=== PATIENT | female | born 1935 | race Caucasian/White ===

== ENCOUNTER → 2017-05-22 | Outpatient (CLI) | payer OTHER ==
[2017-05-22 10:00] LABS: Basophils # (auto) 0 uL; Basophils % (auto) 0.7 % (0.0-2.0); Eosinophils # (auto) 0.1 uL; Eosinophils % (auto) 2.1 % (0.0-7.0); Hematocrit 39.4 % (36.0-46.0); Hemoglobin 13.1 g/dL (12.2-16.2); Lymphocytes # (auto) 1.5 uL; Lymphocytes % (auto) 27.6 % (10.0-50.0); Mean Corpuscular Hemoglobin 32.4 pg (28.0-32.0); Mean Corpuscular Hgb Conc. 33.2 g/dL (32.0-36.0); Mean Corpuscular Volume 97.4 fL (80.0-100.0); Mean Platelet Volume 8.9 fL (6.9-10.8); Monocytes # (auto) 0.7 uL; Monocytes % (auto) 12.5 % (0.0-12.0); Neutrophils # (auto) 3.1 uL; Neutrophils % (auto) 57.1 % (37.0-80.0); Platelet Count (auto) 205 10^3/uL (140-450); Red Cell Distribution Width 13.6 % (11.8-14.3); White Blood Cell 5.4 10^3/uL (4.4-10.8)
[2017-05-22 10:36] LABS: Urine Bilirubin Negative (Negative); Urine Blood Negative /uL (Negative); Urine Color Yellow (Yellow); Urine Glucose Normal (Normal); Urine Ketone Negative (Negative); Urine Nitrite Negative (Negative); Urine RBC 1 /hpf (0 - 4); Urine Squamous Epithelial Cell FEW /hpf (<5); Urine Urobilinogen Normal (Negative); Urine pH 6.5 (5.0-8.0)
[2017-05-22 10:43] LABS: Albumin 3.8 g/dL (3.4-5.0); BUN/Creatinine Ratio 19.6; Bilirubin, Total 1.3 mg/dL (0.2-1.0); Calcium 10.6 mg/dL (8.5-10.1); Potassium 4.3 mmol/L (3.5-5.1); Total Protein 7.6 g/dL (6.4-8.2)
== END | disposition home or self-care (01) ==
LOC: LAB 09:15
PROVIDERS: ATTEND Internal Medicine
DX: I10 Essential (primary) hypertension (principal); E21.3 Hyperparathyroidism, unspecified
CPT/HCPCS: 36415; 80053; 80061; 81001; 82043; 82306; 83970; 84439; 84443; 85025; 85652

== ENCOUNTER → 2018-05-06 | Outpatient (CLI) | payer OTHER ==
[2018-05-06 09:03] LABS: Basophils # (auto) 0.1 uL; Eosinophils # (auto) 0.1 uL; Eosinophils % (auto) 1.7 % (0.0-7.0); Hematocrit 41.6 % (36.0-46.0); Hemoglobin 13.7 g/dL (12.2-16.2); Lymphocytes # (auto) 1.3 uL; Lymphocytes % (auto) 21.4 % (10.0-50.0); Mean Corpuscular Hemoglobin 32.3 pg (28.0-32.0); Mean Corpuscular Volume 97.8 fL (80.0-100.0); Monocytes # (auto) 0.8 uL; Monocytes % (auto) 13.1 % (0.0-12.0); Neutrophils # (auto) 3.7 uL; Neutrophils % (auto) 61.8 % (37.0-80.0); Platelet Count (auto) 194 10^3/uL (140-450); Red Blood Cells 4.25 10^6/uL (4.0-5.20); Red Cell Distribution Width 13.3 % (11.8-14.3)
[2018-05-06 13:27] LABS: Potassium 3.9 mmol/L (3.5-5.1)
[2018-05-06 13:36] LABS: Albumin 3.9 g/dL (3.4-5.0); BUN/Creatinine Ratio 28.9; Bilirubin, Total 0.9 mg/dL (0.2-1.0); Calcium 10.4 mg/dL (8.5-10.1); Total Protein 7.6 g/dL (6.4-8.2)
== END | disposition home or self-care (01) ==
LOC: LAB 08:17
PROVIDERS: ATTEND Internal Medicine
DX: I10 Essential (primary) hypertension (principal); E21.0 Primary hyperparathyroidism
CPT/HCPCS: 36415; 80053; 80061; 83970; 84439; 84443; 85025; 85652

== ENCOUNTER → 2019-05-04 | Outpatient (CLI) | payer OTHER ==
[2019-05-04 08:46] LABS: Basophils # (auto) 0 uL; Basophils % (auto) 0.9 % (0.0-2.0); Eosinophils # (auto) 0.1 uL; Eosinophils % (auto) 1.8 % (0.0-7.0); Hematocrit 41.6 % (36.0-46.0); Hemoglobin 13.8 g/dL (12.2-16.2); Lymphocytes # (auto) 1.2 uL; Lymphocytes % (auto) 23.9 % (10.0-50.0); Mean Corpuscular Hemoglobin 32.6 pg (28.0-32.0); Mean Corpuscular Hgb Conc. 33.1 g/dL (32.0-36.0); Mean Corpuscular Volume 98.3 fL (80.0-100.0); Monocytes # (auto) 0.5 uL; Monocytes % (auto) 9.9 % (0.0-12.0); Neutrophils # (auto) 3.3 uL; Neutrophils % (auto) 63.5 % (37.0-80.0); Nucleated Red Blood Cells % 0.1 %; Platelet Count (auto) 190 10^3/uL (140-450); Red Blood Cells 4.23 10^6/uL (4.0-5.20); Red Cell Distribution Width 14.2 % (11.8-14.3); White Blood Cell 5.2 10^3/uL (4.4-10.8)
[2019-05-04 08:47] LABS: Urine Bacteria FEW /hpf (None Seen); Urine Blood Negative /uL (Negative); Urine Specific Gravity 1.004 (1.001-1.035); Urine WBC 120 /hpf (0 - 5); Urine WBC Clumps PRESENT /hpf (None Seen)
[2019-05-04 09:11] LABS: Albumin 4.1 g/dL (3.4-5.0); Calcium 10.8 mg/dL (8.5-10.1); Potassium 3.8 mmol/L (3.5-5.1)
[2019-05-04 09:15] LABS: BUN/Creatinine Ratio 20.4; Bilirubin, Total 1.4 mg/dL (0.2-1.0); Total Protein 7.6 g/dL (6.4-8.2)
== END | disposition home or self-care (01) ==
LOC: LAB 08:10
PROVIDERS: ATTEND Internal Medicine
DX: E03.9 Hypothyroidism, unspecified (principal); I10 Essential (primary) hypertension
CPT/HCPCS: 36415; 80053; 80061; 81001; 82043; 83970; 84439; 84443; 85025; 85652

== ENCOUNTER → 2020-05-10 | Outpatient (CLI) | payer OTHER ==
[2020-05-10 10:05] LABS: Urine Bacteria FEW /hpf (None Seen); Urine Blood TRACE /uL (Negative); Urine Hyaline Cast FEW /lpf (0 - 2); Urine Mucus FEW (None Seen); Urine Specific Gravity 1.014 (1.001-1.035); Urine WBC 219 /hpf (0 - 5); Urine WBC Clumps PRESENT /hpf (None Seen)
[2020-05-10 10:18] LABS: Basophils # (auto) 0.1 10 ^3/uL (0-0.2); Basophils % (auto) 1.5 % (0.0-2.0); Eosinophils # (auto) 0.1 10 ^3/uL (0-0.8); Eosinophils % (auto) 1.6 % (0.0-7.0); Hematocrit 38.3 % (36.0-46.0); Hemoglobin 12.9 g/dL (12.2-16.2); Lymphocytes # (auto) 1.2 10 ^3/uL (0.4-5.4); Lymphocytes % (auto) 20.6 % (10.0-50.0); Mean Corpuscular Hemoglobin 32.7 pg (28.0-32.0); Mean Corpuscular Hgb Conc. 33.7 g/dL (32.0-36.0); Monocytes # (auto) 0.5 10 ^3/uL (0-1.3); Neutrophils # (auto) 4.1 10 ^3/uL (1.6-8.6); Neutrophils % (auto) 68.3 % (37.0-80.0); Platelet Count (auto) 198 10^3/uL (140-450); Red Blood Cells 3.95 10^6/uL (4.0-5.20); Red Cell Distribution Width 13.6 % (11.8-14.3)
[2020-05-10 10:39] LABS: Albumin 3.6 g/dL (3.4-5.0); Calcium 10.3 mg/dL (8.5-10.1); Potassium 3.8 mmol/L (3.5-5.1)
[2020-05-10 10:45] LABS: BUN/Creatinine Ratio 21.2; Bilirubin, Total 1.4 mg/dL (0.2-1.0)
== END | disposition home or self-care (01) ==
LOC: LAB 09:10
PROVIDERS: ATTEND Internal Medicine
DX: I10 Essential (primary) hypertension (principal); E21.0 Primary hyperparathyroidism; R91.8 Other nonspecific abnormal finding of lung field
CPT/HCPCS: 36415; 80053; 80061; 81001; 83970; 84439; 84443; 85025; 85652

== ENCOUNTER 2020-08-13 18:07 | Inpatient (IN) | payer OTHER ==
[~2020-08-13] VITALS: Ht 152.4 cm; Wt 61.9 kg
[2020-08-13 18:36] VITALS: BP 91/50
[2020-08-13 19:30] VITALS: BP 91/50
[2020-08-13] MEDS ORDERED: ACETAMINOPHEN 500 MG TAB PO PRN (20:00)
[2020-08-13] MEDS ORDERED: MORPHINE SULF INJ 2 MG/ML SYRINGE 1ML IV PRN ×2 (20:00)
[2020-08-13] MEDS ORDERED: NITROGLYCERIN 0.4 MG SL TAB SL PRN (20:00)
[2020-08-13] MEDS ORDERED: DOCUSATE SOD 100 MG CAP PO PRN (20:00)
[2020-08-13 22:00] VITALS: BP 92/52
[2020-08-14] MEDS ORDERED: LISI2.5T47 PO (01:38)
[2020-08-14] MEDS ORDERED: ASPI81CH74 PO (01:38)
[2020-08-14] MEDS ORDERED: PNEUMOCOCCAL VACC POLYS 25 MCG/0.5 ML VIAL IM ONE (04:45)
[2020-08-14 05:00] VITALS: BP 85/53
[2020-08-14] MEDS ORDERED: ALBUMIN 5% 250 ML IV ONE (05:15)
[2020-08-14] MEDS ORDERED: KETOROLAC TROMETH 30 MG/ML 1ML VIAL IV PRN (05:15)
[2020-08-14 05:31] LABS: Basophils # (auto) 0 10 ^3/uL (0-0.2); Basophils % (auto) 0.2 % (0.0-2.0); Eosinophils # (auto) 0 10 ^3/uL (0-0.8); Eosinophils % (auto) 0.1 % (0.0-7.0); Hematocrit 27.8 % (36.0-46.0); Hemoglobin 9.3 g/dL (12.2-16.2); Lymphocytes % (auto) 10.2 % (10.0-50.0); Mean Corpuscular Hemoglobin 33.3 pg (28.0-32.0); Mean Corpuscular Hgb Conc. 33.6 g/dL (32.0-36.0); Mean Corpuscular Volume 99.2 fL (80.0-100.0); Monocytes # (auto) 1.7 10 ^3/uL (0-1.3); Monocytes % (auto) 16.1 % (0.0-12.0); Neutrophils # (auto) 7.5 10 ^3/uL (1.6-8.6); Neutrophils % (auto) 73.4 % (37.0-80.0); Nucleated Red Blood Cells % 0.1 %; Platelet Count (auto) 144 10^3/uL (140-450); Red Cell Distribution Width 13.6 % (11.8-14.3); White Blood Cell 10.3 10^3/uL (4.4-10.8)
[2020-08-14 05:46] LABS: INR 1.09 (0.9-1.15); Partial Thromboplastin Time 25.1 sec (23.0-31.2)
[2020-08-14 05:49] LABS: Albumin 2.9 g/dL (3.4-5.0); Calcium 9.6 mg/dL (8.5-10.1); Potassium 3.8 mmol/L (3.5-5.1)
[2020-08-14 05:51] LABS: BUN/Creatinine Ratio 30.6
[2020-08-14 06:05] LABS: Bilirubin, Total 1.4 mg/dL (0.2-1.0); Total Protein 5.7 g/dL (6.4-8.2)
[2020-08-14 07:06] VITALS: BP 113/57
[2020-08-14 08:40] VITALS: BP 113/57
[2020-08-14] MEDS: FAMOTIDINE 20 MG TAB PO SCH (09:37)
[2020-08-14] MEDS ORDERED: HYDROmorphone HCL 2 MG/ML VL IV PRN (10:45)
[2020-08-14] MEDS ORDERED: SODIUM CHLORIDE 0.9% 1,000 ML IV SCH (10:45)
[2020-08-14 12:45] VITALS: BP 113/55
[2020-08-14] MEDS: ONDANSETRON HCL 4 MG/2 ML VIAL IV PRN (15:09)
[2020-08-14 17:00] VITALS: BP 75/40
[2020-08-14] MEDS ORDERED: SODIUM CHLORIDE 0.9% 500 ML IV ONE (19:15)
[2020-08-14] MEDS: SODIUM CHLORIDE 0.9% 1,000 ML IV SCH (23:54)
[2020-08-15 00:50] VITALS: BP 94/48
[2020-08-15] MEDS: SODIUM CHLORIDE 0.9% 1,000 ML IV SCH ×3 (03:15→20:15)
[2020-08-15 05:07] VITALS: BP 100/62
[2020-08-15] MEDS: HYDROmorphone HCL 2 MG/ML VL IV PRN (05:42)
[2020-08-15 07:25] LABS: Urine Bacteria MANY /hpf (None Seen); Urine Blood 1+ /uL (Negative); Urine Hyaline Cast FEW /lpf (0 - 2); Urine Mucus FEW (None Seen); Urine Specific Gravity 1.021 (1.001-1.035); Urine WBC 364 /hpf (0 - 5); Urine WBC Clumps PRESENT /hpf (None Seen)
[2020-08-15] MEDS ORDERED: CLINDAMYCIN 600MG IV 50 ML IV ONE (08:32)
[2020-08-15 09:00] VITALS: BP 101/53
[2020-08-15] MEDS ORDERED: TETRACAINE 1% INJ 2 ML VIAL IJ ONE (09:50)
[2020-08-15] MEDS ORDERED: MEPERIDINE HCL (25 MG/ML) 1ML VIAL ONE (09:54)
[2020-08-15] MEDS ORDERED: fentaNYL CITRATE 100 MCG/2 ML VL ONE (09:54)
[2020-08-15] MEDS ORDERED: MIDAZOLAM HCL 1MG/1ML-2 ML VIAL ONE (09:54)
[2020-08-15] MEDS ORDERED: DexAMETHasone SOD PHOS 10MG/1ML VIAL INJ ONE (09:58)
[2020-08-15] MEDS: FAMOTIDINE 20 MG TAB PO SCH (10:00)
[2020-08-15] MEDS ORDERED: levoFLOXacin 500MG 100 ML IV ONE (10:15)
[2020-08-15] MEDS ORDERED: PHENYLEPHRINE HCL 10 MG/ML VL ONE (10:44)
[2020-08-15] MEDS ORDERED: SODIUM CHLOR 0.9% PF (SALINE LOCK) 10ML VIAL/SYR IV PRN (11:45)
[2020-08-15] MEDS ORDERED: LACTATED RINGER'S 1,000 ML IV SCH (11:45)
[2020-08-15] MEDS ORDERED: ACETAMINOPHEN 325 MG TAB PO PRN (11:45)
[2020-08-15] MEDS ORDERED: CLINDAMYCIN 600MG IV 50 ML IV SCH (12:00)
[2020-08-15] MEDS ORDERED: KETOROLAC TROMETH 15 mg/ml 1ML VL IV SCH (12:00)
[2020-08-15 13:30] VITALS: BP 101/61
[2020-08-15] MEDS ORDERED: SODIUM CHLORIDE 0.9% 500 ML IV ONE (15:30)
[2020-08-15 16:41] VITALS: BP 94/58
[2020-08-15] MEDS: KETOROLAC TROMETH 30 MG/ML 1ML VIAL IV SCH (18:04)
[2020-08-15] MEDS: CLINDAMYCIN 600MG IV 50 ML IV SCH (21:40)
[2020-08-15 22:12] VITALS: BP 104/62
[2020-08-16] MEDS: KETOROLAC TROMETH 30 MG/ML 1ML VIAL IV SCH ×2 (00:12→06:06)
[2020-08-16] MEDS: CLINDAMYCIN 600MG IV 50 ML IV SCH (03:12)
[2020-08-16 04:44] VITALS: BP 104/64
[2020-08-16 06:02] LABS: Basophils # (auto) 0 10 ^3/uL (0-0.2); Eosinophils # (auto) 0 10 ^3/uL (0-0.8); Hemoglobin 7.4 g/dL (12.2-16.2); Lymphocytes # (auto) 0.6 10 ^3/uL (0.4-5.4); Mean Corpuscular Volume 98.4 fL (80.0-100.0); Monocytes # (auto) 1.4 10 ^3/uL (0-1.3); Monocytes % (auto) 13.7 % (0.0-12.0); Platelet Count (auto) 103 10^3/uL (140-450)
[2020-08-16 06:04] LABS: Hematocrit 21.5 % (36.0-46.0); Lymphocytes % (auto) 5.8 % (10.0-50.0); Mean Corpuscular Hemoglobin 33.7 pg (28.0-32.0); Mean Corpuscular Hgb Conc. 34.2 g/dL (32.0-36.0); Neutrophils # (auto) 8.2 10 ^3/uL (1.6-8.6); Neutrophils % (auto) 80.5 % (37.0-80.0); Red Blood Cells 2.19 10^6/uL (4.0-5.20); Red Cell Distribution Width 13.4 % (11.8-14.3); White Blood Cell 10.2 10^3/uL (4.4-10.8)
[2020-08-16] MEDS: SODIUM CHLORIDE 0.9% 1,000 ML IV SCH ×3 (06:06→23:20)
[2020-08-16 06:17] LABS: BUN/Creatinine Ratio 26.2; Calcium 9.1 mg/dL (8.5-10.1); Potassium 4.4 mmol/L (3.5-5.1)
[2020-08-16 09:00] VITALS: BP 136/69
[2020-08-16] MEDS ORDERED: ENOXAPARIN SOD 40 MG/0.4 ML SYRINGE SC SCH (10:00)
[2020-08-16] MEDS ORDERED: levoFLOXacin 500MG 100 ML IV SCH (10:00)
[2020-08-16] MEDS: FAMOTIDINE 20 MG TAB PO SCH (10:32)
[2020-08-16 13:00] VITALS: BP 113/64
[2020-08-16] MEDS: HYDROcodone-ACET 5/325MG TAB PO PRN (16:17)
[2020-08-16 17:00] VITALS: BP 103/72
[2020-08-16 22:00] VITALS: BP 115/65
[2020-08-17] MEDS: HYDROmorphone HCL 2 MG/ML VL IV PRN ×2 (04:02→09:07)
[2020-08-17 05:00] VITALS: BP 136/60
[2020-08-17 06:16] LABS: Basophils # (auto) 0 10 ^3/uL (0-0.2); Eosinophils # (auto) 0.2 10 ^3/uL (0-0.8); Eosinophils % (auto) 2.4 % (0.0-7.0); Hemoglobin 7.7 g/dL (12.2-16.2); Lymphocytes # (auto) 0.6 10 ^3/uL (0.4-5.4); Monocytes # (auto) 1.1 10 ^3/uL (0-1.3); Neutrophils # (auto) 6.2 10 ^3/uL (1.6-8.6)
[2020-08-17 06:18] LABS: Basophils % (auto) 0.5 % (0.0-2.0); Hematocrit 22.4 % (36.0-46.0); Lymphocytes % (auto) 7.5 % (10.0-50.0); Mean Corpuscular Hemoglobin 33.6 pg (28.0-32.0); Mean Corpuscular Hgb Conc. 34.4 g/dL (32.0-36.0); Mean Corpuscular Volume 97.7 fL (80.0-100.0); Monocytes % (auto) 13.2 % (0.0-12.0); Neutrophils % (auto) 76.4 % (37.0-80.0); Platelet Count (auto) 123 10^3/uL (140-450); Red Cell Distribution Width 13.6 % (11.8-14.3); White Blood Cell 8.1 10^3/uL (4.4-10.8)
[2020-08-17 06:32] LABS: Calcium 9.2 mg/dL (8.5-10.1); Potassium 4.1 mmol/L (3.5-5.1)
[2020-08-17 09:00] VITALS: BP 133/74
[2020-08-17] MEDS: levoFLOXacin 250MG 50 ML IV SCH (09:33)
[2020-08-17] MEDS: FAMOTIDINE 20 MG TAB PO SCH (09:34)
[2020-08-17 13:00] VITALS: BP 134/53
[2020-08-17 16:30] VITALS: BP 104/53
[2020-08-17] MEDS: FERROUS SULFATE 325 MG TAB PO SCH (18:39)
[2020-08-17 22:00] VITALS: BP 103/57
[2020-08-18 05:00] VITALS: BP 120/67
[2020-08-18 06:56] LABS: Basophils # (auto) 0 10 ^3/uL (0-0.2); Basophils % (auto) 0.6 % (0.0-2.0); Hemoglobin 8.3 g/dL (12.2-16.2); Monocytes # (auto) 1.1 10 ^3/uL (0-1.3); Neutrophils # (auto) 5.1 10 ^3/uL (1.6-8.6); White Blood Cell 7.5 10^3/uL (4.4-10.8)
[2020-08-18 07:00] LABS: Eosinophils # (auto) 0.3 10 ^3/uL (0-0.8); Eosinophils % (auto) 3.4 % (0.0-7.0); Hematocrit 24.7 % (36.0-46.0); Lymphocytes % (auto) 13.2 % (10.0-50.0); Mean Corpuscular Hemoglobin 32.5 pg (28.0-32.0); Mean Corpuscular Hgb Conc. 33.6 g/dL (32.0-36.0); Mean Corpuscular Volume 96.8 fL (80.0-100.0); Monocytes % (auto) 14.7 % (0.0-12.0); Neutrophils % (auto) 68.1 % (37.0-80.0); Platelet Count (auto) 154 10^3/uL (140-450); Red Blood Cells 2.55 10^6/uL (4.0-5.20); Red Cell Distribution Width 13.6 % (11.8-14.3)
[2020-08-18 09:00] VITALS: BP 148/75
[2020-08-18] MEDS: HYDROmorphone HCL 2 MG/ML VL IV PRN (10:12)
[2020-08-18] MEDS: FERROUS SULFATE 325 MG TAB PO SCH ×2 (10:14→18:00)
[2020-08-18] MEDS ORDERED: LACTULOSE 20Gm/30ML SOLN PO ONE (11:15)
[2020-08-18] MEDS ORDERED: BISACODYL 5 MG EC TAB PO ONE (11:15)
[2020-08-18] MEDS: FAMOTIDINE 20 MG TAB PO SCH (11:20)
[2020-08-18] MEDS: levoFLOXacin 250MG 50 ML IV SCH (11:20)
[2020-08-18 13:00] VITALS: BP 99/75
[2020-08-18] MEDS: ONDANSETRON HCL 4 MG/2 ML VIAL IV PRN (15:26)
[2020-08-18 17:00] VITALS: BP 114/68
[2020-08-18 22:00] VITALS: BP 105/45
[2020-08-19 04:48] VITALS: BP 105/65
[2020-08-19] MEDS: ONDANSETRON HCL 4 MG/2 ML VIAL IV PRN (07:15)
[2020-08-19] MEDS: FERROUS SULFATE 325 MG TAB PO SCH ×2 (08:00→18:00)
[2020-08-19 09:00] VITALS: BP 118/54
[2020-08-19] MEDS: levoFLOXacin 250MG 50 ML IV SCH (10:11)
[2020-08-19] MEDS: FAMOTIDINE 20 MG TAB PO SCH (10:12)
[2020-08-19] MEDS: HYDROmorphone HCL 2 MG/ML VL IV PRN (10:12)
[2020-08-19] MEDS ORDERED: BISACODYL 10 MG RECT SUPP PR ONE (10:15)
[2020-08-19] MEDS ORDERED: BISACODYL 5 MG EC TAB PO ONE ×2 (10:15→14:30)
[2020-08-19 13:00] VITALS: BP 102/54
[2020-08-19] MEDS ORDERED: MAGNESIUM CITRATE SOLUTION 300 ML BTL PO ONE (14:30)
[2020-08-19] MEDS ORDERED: POLYETHYLENE GLYCOL 17 GM PWDR PO ONE (14:30)
[2020-08-19 17:00] VITALS: BP 101/54
[2020-08-19 22:11] VITALS: BP 114/68
[2020-08-20 05:00] VITALS: BP 126/71
[2020-08-20 06:21] LABS: Basophils # (auto) 0 10 ^3/uL (0-0.2); Basophils % (auto) 0.2 % (0.0-2.0); Eosinophils # (auto) 0.2 10 ^3/uL (0-0.8); Eosinophils % (auto) 1.8 % (0.0-7.0); Hematocrit 20.4 % (36.0-46.0); Hemoglobin 7.2 g/dL (12.2-16.2); Lymphocytes # (auto) 0.6 10 ^3/uL (0.4-5.4); Lymphocytes % (auto) 5.7 % (10.0-50.0); Mean Corpuscular Hemoglobin 33.8 pg (28.0-32.0); Mean Corpuscular Hgb Conc. 35.1 g/dL (32.0-36.0); Mean Corpuscular Volume 96.4 fL (80.0-100.0); Monocytes # (auto) 0.9 10 ^3/uL (0-1.3); Neutrophils # (auto) 8.6 10 ^3/uL (1.6-8.6); Neutrophils % (auto) 83.3 % (37.0-80.0); Platelet Count (auto) 195 10^3/uL (140-450); Red Blood Cells 2.12 10^6/uL (4.0-5.20); Red Cell Distribution Width 13.3 % (11.8-14.3); White Blood Cell 10.3 10^3/uL (4.4-10.8)
[2020-08-20 06:49] LABS: Potassium 3.2 mmol/L (3.5-5.1)
[2020-08-20 06:55] LABS: BUN/Creatinine Ratio 29.2; Calcium 8.9 mg/dL (8.5-10.1); Magnesium 2.4 mg/dL (1.6-2.6)
[2020-08-20] MEDS ORDERED: POTASSIUM CHL 20 Meq TABLET PO ONE (08:30)
[2020-08-20] MEDS: FERROUS SULFATE 325 MG TAB PO SCH ×2 (08:56→18:26)
[2020-08-20 09:00] VITALS: BP 111/62
[2020-08-20] MEDS ORDERED: POTASSIUM EFFERVESENT TAB 25 MEQ PO ONE (09:15)
[2020-08-20] MEDS: FAMOTIDINE 20 MG TAB PO SCH (09:28)
[2020-08-20] MEDS: levoFLOXacin 250MG 50 ML IV SCH (09:28)
[2020-08-20] MEDS: HYDROmorphone HCL 2 MG/ML VL IV PRN (09:29)
[2020-08-20 11:57] LABS: % Iron Saturation 11.7 % (15-50)
[2020-08-20 13:00] VITALS: BP 133/87
[2020-08-20 17:00] VITALS: BP 114/53
[2020-08-20 22:04] VITALS: BP 113/65
[2020-08-21 05:09] VITALS: BP 137/67
[2020-08-21 06:29] LABS: Hemoglobin 7.5 g/dL (12.2-16.2)
[2020-08-21 06:34] LABS: Hematocrit 21.5 % (36.0-46.0)
[2020-08-21] MEDS: FERROUS SULFATE 325 MG TAB PO SCH ×2 (08:35→17:50)
[2020-08-21 08:43] VITALS: BP 126/59
[2020-08-21] MEDS: FAMOTIDINE 20 MG TAB PO SCH (10:01)
[2020-08-21] MEDS: levoFLOXacin 250MG 50 ML IV SCH (10:01)
[2020-08-21 11:11] LABS: Albumin 2.1 g/dL (3.4-5.0); Calcium 9.1 mg/dL (8.5-10.1); Potassium 3.6 mmol/L (3.5-5.1)
[2020-08-21 11:14] LABS: Bilirubin, Total 1.9 mg/dL (0.2-1.0); Total Protein 4.8 g/dL (6.4-8.2)
[2020-08-21] MEDS: IRON SUCROSE COMPLEX 200 MG in SODIUM CHL 0.9% 100 ML IV SCH (12:41)
[2020-08-21] MEDS: Ensure HIGH Protein Chocolate 8oz Bottle PO SCH ×2 (12:41→17:50)
[2020-08-21 13:00] VITALS: BP 138/81
[2020-08-21] MEDS: HYDROmorphone HCL 2 MG/ML VL IV PRN (14:59)
[2020-08-21 16:48] VITALS: BP 126/69
[2020-08-21 22:00] VITALS: BP 122/69
[2020-08-22 05:00] VITALS: BP 132/65
[2020-08-22 08:20] VITALS: BP 112/58
[2020-08-22] MEDS: FERROUS SULFATE 325 MG TAB PO SCH (08:46)
[2020-08-22] MEDS: Ensure HIGH Protein Chocolate 8oz Bottle PO SCH ×3 (08:47→18:00)
[2020-08-22] MEDS: levoFLOXacin 250MG 50 ML IV SCH (09:58)
[2020-08-22] MEDS: FAMOTIDINE 20 MG TAB PO SCH (10:01)
[2020-08-22] MEDS: IRON SUCROSE COMPLEX 200 MG in SODIUM CHL 0.9% 100 ML IV SCH (13:16)
[2020-08-22 14:05] VITALS: BP 133/85
[2020-08-22] MEDS: HYDROcodone-ACET 5/325MG TAB PO PRN (14:58)
[2020-08-22 16:26] VITALS: BP 142/82
== END 2020-08-22 19:00 | DRG 481 ==
LOC: TELE-WESTW 18:51 → TELE-CENTR 20:46
PROVIDERS: ADMIT Nurse Practitioner Acute Care; ATTEND Internal Medicine
PROC: 0QSB36Z Reposition Right Lower Femur with Intramedullary Internal Fixation Device, Percutaneous Approach (ICD-10-PCS; principal; 2020-08-15 10:00)
DX: S72.451A Displaced supracondylar fracture without intracondylar extension of lower end of right femur, initial encounter for closed fracture (principal); N39.0 Urinary tract infection, site not specified; E44.0 Moderate protein-calorie malnutrition; Z68.41 Body mass index [BMI] 40.0-44.9, adult; I10 Essential (primary) hypertension; W01.0XXA Fall on same level from slipping, tripping and stumbling without subsequent striking against object, initial encounter; E07.9 Disorder of thyroid, unspecified; K59.00 Constipation, unspecified; D64.9 Anemia, unspecified; Z20.822 Contact with and (suspected) exposure to COVID-19; Z88.8 Allergy status to other drugs, medicaments and biological substances; Y93.89 Activity, other specified; Y92.89 Other specified places as the place of occurrence of the external cause; Y99.8 Other external cause status
CPT/HCPCS: 36415; 71045; 73502; 73564; 74018; 80048; 80053; 81001; 82728; 83540; 83550; 83615; 83735; 84443; 85014; 85018; 85025; 85045; 85610; 85730; 86850; 86900; 86901; 87086; 87426; 93306; 97110; 97116; 97530; C1713; C1769; G0378; J1100; J1756; J1885; J1956; J2250; J2405; J3490